=== PATIENT | female | born 1960 | race Two or more races ===

== ENCOUNTER 2018-08-22 19:10 | Emergency (ER) | payer OTHER ==
[~2018-08-22] VITALS: Ht 157.5 cm; Wt 100.2 kg
[~2018-08-22 19:10] MED LIST: ASPI81TA31 PO; ATOR80TA PO; GLIM4TAB3 PO; LISI10TA5 PO; METF-440 PO; OMEP20TA20 PO
[2018-08-22] MEDS ORDERED: OMEP40CA37 PO (19:37)
[2018-08-22 20:01] LABS: *BILIRUBIN,URIN NEGATIVE (NEGATIVE); *BLOOD, URINE NEGATIVE (NEGATIVE); *CLARITY,URINE CLEAR (CLEAR); *COLOR,URINE YELLOW (YELLOW); *KETONES,URINE NEGATIVE (NEGATIVE); *UROBILINOGEN,URINE 0.2 E.U./dl (NORMAL); BACTERIA,URINE NONE SEEN /HPF (NONE SEEN); LEUKOCYTE ESTERASE ,URINE TRACE (NEGATIVE); NITRITE, URINE NEGATIVE (NEGATIVE); RBC,URINE 0-3 /HPF (0-3); SQUAMOUS EPITHELIAL CELL,UR FEW /HPF (NONE SEEN); UGLUCOSE 2+ (NEGATIVE); WBC,URINE 0-3 /HPF (0-3)
[2018-08-22 20:19] LABS: BASOPHILS # (AUTO) 0.1 K/uL (0.0-8.0); BASOPHILS % (AUTO) 0.8 % (0.0-2.0); EOSINOPHILS # (AUTO) 0.1 K/uL (0.0-0.7); EOSINOPHILS % (AUTO) 0.8 % (0.0-7.0); HEMATOCRIT 41.1 % (31.2-41.9); HEMOGLOBIN 13.6 g/dL (10.9-14.3); LYMPHOCYTES # (AUTO) 2.3 K/uL (20.0-40.0); MEAN CORPUSCULAR HEMOGLOBIN 29.7 uug (24.7-32.8); MEAN CORPUSCULAR HGB CONC 33 g/dL (32.3-35.6); MONOCYTES # (AUTO) 0.5 K/uL (2.0-10.0); MONOCYTES % (AUTO) 6.5 % (0.0-11.0); NEUTROPHILS # (AUTO) 4.9 K/uL (1.8-8.9); NEUTROPHILS % (AUTO) 62.9 % (38.5-71.5); PLATELET COUNT (AUTO) 351 K/uL (179-408); RED BLOOD CELL COUNT(AUTO) 4.57 MIL/uL (3.63-4.92); WHITE BLOOD COUNT (AUTO) 7.8 K/uL (3.8-11.8)
[2018-08-22 20:25] LABS: POTASSIUM 5.2 mmol/L (3.5-5.1)
[2018-08-22] MEDS ORDERED: FLUCONAZOLE 100 MG TABLET ONE ×2 (20:46→20:48)
[2018-08-22] MEDS: FLUCONAZOLE 100 MG TABLET PO ONE (20:46)
[2018-08-22] MEDS ORDERED: INSULIN REGULAR, HUMAN 300 UNIT/3 ML VIAL ONE (20:47)
[2018-08-22] MEDS: INSULIN REGULAR, HUMAN 300 UNIT/3 ML VIAL SQ ONE (20:48)
--- NOTE | 2018-08-22 22:36 | NUR ---
Patient discharged to home in stable conditon. Written and verbal after care instructions given. Patient verbalizes understanding of instructions. WALKED OUT OF ER WITH NO DISTRESS NOTED
[2018-08-22 22:37] VITALS: BP 155/99
== END 2018-08-22 22:37 | disposition home or self-care (01) ==
LOC: ER 19:13 → MERGE 19:13 → ER 22:37
DX: R30.0 Dysuria (principal); N89.8 Other specified noninflammatory disorders of vagina; I10 Essential (primary) hypertension; E11.65 Type 2 diabetes mellitus with hyperglycemia; E78.5 Hyperlipidemia, unspecified; Z88.0 Allergy status to penicillin; Z90.49 Acquired absence of other specified parts of digestive tract; Z79.82 Long term (current) use of aspirin; Z79.899 Other long term (current) drug therapy
CPT/HCPCS: 36415; 80048; 81001; 82962; 85025; 87077; 87086; 96372; 99283; J1815; A4663

== ENCOUNTER 2018-09-05 15:29 | Emergency (ER) | payer OTHER ==
[~2018-09-05] VITALS: Ht 160 cm; Wt 100.2 kg
[~2018-09-05 15:29] MED LIST changes: -OMEP20TA20 PO; +OMEP40CA37 PO
[2018-09-05] MEDS ORDERED: IV NORMAL SALINE 1000 ML BAG IV ONE (15:45)
[2018-09-05] MEDS ORDERED: ONDANSETRON IV *ER 4 MG/2 ML VIAL IV ONE (15:45)
[2018-09-05] MEDS ORDERED: KETOROLAC TROMETHAMINE 30 MG INJ IVP ONE (15:45)
[2018-09-05] MEDS ORDERED: ONDANSETRON 4 MG/2 ML VIAL ONE (15:55)
[2018-09-05] MEDS ORDERED: KETOROLAC TROMETHAMINE 30 MG INJ ONE (15:55)
[2018-09-05 17:15] LABS: BASOPHILS % (AUTO) 0.4 % (0.0-2.0); EOSINOPHILS # (AUTO) 0.1 K/uL (0.0-0.7); HEMATOCRIT 36.7 % (31.2-41.9); HEMOGLOBIN 11.9 g/dL (10.9-14.3); LYMPHOCYTES # (AUTO) 1.9 K/uL (20.0-40.0); MEAN CORPUSCULAR HEMOGLOBIN 29.5 uug (24.7-32.8); MEAN CORPUSCULAR HGB CONC 33 g/dL (32.3-35.6); MEAN CORPUSCULAR VOLUME 90.8 fL (75.5-95.3); MONOCYTES # (AUTO) 0.4 K/uL (2.0-10.0); MONOCYTES % (AUTO) 5.7 % (0.0-11.0); NEUTROPHILS # (AUTO) 4.3 K/uL (1.8-8.9); NEUTROPHILS % (AUTO) 63.9 % (38.5-71.5); PLATELET COUNT (AUTO) 249 K/uL (179-408); RED BLOOD CELL COUNT(AUTO) 4.04 MIL/uL (3.63-4.92); WHITE BLOOD COUNT (AUTO) 6.7 K/uL (3.8-11.8)
[2018-09-05 17:26] LABS: CREATININE 0.9 mg/dL (0.6-1.3); POTASSIUM 4.9 mmol/L (3.5-5.1)
[2018-09-05] MEDS ORDERED: ACETAMINOPHEN 325 MG TABLET PO ONE (17:30)
[2018-09-05] MEDS ORDERED: MECLIZINE HCL 25 MG TABLET PO ONE (17:45)
--- NOTE | 2018-09-05 17:49 | NUR ---
IV removed. Catheter intact and site benign. Pressure and 4x4 gauze applied to site. No bleeding noted. Patient discharged to home in stable conditon. Written and verbal after care instructions given to patient and family. Patient and family verbalized understanding of instructions.
[2018-09-05] MEDS ORDERED: ACETAMINOPHEN ES 500 MG TABLET ONE (17:53)
[2018-09-05] MEDS ORDERED: MECLIZINE HCL 25 MG TABLET ONE (17:54)
== END 2018-09-05 18:02 | disposition home or self-care (01) ==
LOC: ER 15:32
DX: H83.02 Labyrinthitis, left ear (principal); B97.89 Other viral agents as the cause of diseases classified elsewhere; R11.2 Nausea with vomiting, unspecified; J02.9 Acute pharyngitis, unspecified; E11.9 Type 2 diabetes mellitus without complications; R42 Dizziness and giddiness; Z88.0 Allergy status to penicillin
CPT/HCPCS: 36415; 80048; 85025; 87400; 96374; 96375; 99283; J1885; J2405; A4663; A9150; J7030; J8597

== ENCOUNTER 2020-02-05 19:36 | Emergency (ER) | payer OTHER ==
[~2020-02-05] VITALS: Ht 165.1 cm; Wt 98.9 kg
[~2020-02-05 19:36] MED LIST changes: -GLIM4TAB3 PO; +GLIM4TAB37 PO; +OMEP40CA13 PO; -OMEP40CA37 PO
[2020-02-05] MEDS ORDERED: HYDROMORPHONE 1 MG/1 ML DISP.SYRIN IV ONE (20:30)
[2020-02-05] MEDS ORDERED: ONDANSETRON 4 MG/2 ML VIAL IV ONE ×2 (20:30→22:30)
[2020-02-05 20:43] LABS: BASOPHILS # (AUTO) 0.1 K/uL (0.0-8.0); BASOPHILS % (AUTO) 0.7 % (0.0-2.0); EOSINOPHILS # (AUTO) 0.2 K/uL (0.0-0.7); EOSINOPHILS % (AUTO) 2.7 % (0.0-7.0); HEMATOCRIT 40.2 % (31.2-41.9); HEMOGLOBIN 13.4 g/dL (10.9-14.3); LYMPHOCYTES # (AUTO) 2.6 K/uL (20.0-40.0); LYMPHOCYTES % (AUTO) 30.4 % (20.5-51.5); MEAN CORPUSCULAR HEMOGLOBIN 30.7 uug (24.7-32.8); MEAN CORPUSCULAR HGB CONC 33 g/dL (32.3-35.6); MEAN CORPUSCULAR VOLUME 92.2 fL (75.5-95.3); MONOCYTES # (AUTO) 0.6 K/uL (2.0-10.0); MONOCYTES % (AUTO) 7.1 % (0.0-11.0); NEUTROPHILS % (AUTO) 59.1 % (38.5-71.5); PLATELET COUNT (AUTO) 342 K/uL (179-408); RED BLOOD CELL COUNT(AUTO) 4.36 MIL/uL (3.63-4.92); WHITE BLOOD COUNT (AUTO) 8.5 K/uL (3.8-11.8)
[2020-02-05] MEDS ORDERED: SWABABLE VALVE TRANSFER SET EA MC ONE (20:45)
[2020-02-05] MEDS ORDERED: IV NORMAL SALINE 0 ML IV ONE (20:45)
[2020-02-05] MEDS ORDERED: IOHEXOL 300MG/ML 100 ML INFUS..BTL ONE (20:45)
[2020-02-05] MEDS ORDERED: HYDROMORPHONE 1 MG/1 ML DISP.SYRIN ONE (20:51)
[2020-02-05] MEDS ORDERED: ONDANSETRON 4 MG/2 ML VIAL ONE ×2 (20:51→22:28)
[2020-02-05 21:41] LABS: BILIRUBIN,DIRECT 0.1 mg/dL (0.0-0.2); BILIRUBIN,TOTAL 0.5 mg/dL (0.2-1.0); CREATININE 1.6 mg/dL (0.6-1.3); POTASSIUM 4.6 mmol/L (3.5-5.1); TOTAL PROTEIN, SERUM 7.6 g/dL (6.4-8.2)
[2020-02-05] MEDS ORDERED: METRONIDAZOLE 500 MG/NS 100 ML PIGGYBACK IV ONE (23:30)
[2020-02-05] MEDS ORDERED: levoFLOXacin 750 MG/D5W 150 ML PIGGYBACK IV ONE (23:30)
[2020-02-05] MEDS ORDERED: METRONIDAZOLE 500 MG/NS 100ML 100 ML IV ONE (23:32)
[2020-02-06] MEDS ORDERED: METFORMIN HCL 500 MG TABLET PO ONE
[2020-02-06] MEDS ORDERED: levoFLOXacin 750MG/D5W 150 ML IV ONE (00:15)
[2020-02-06] MEDS ORDERED: METFORMIN HCL 500 MG TABLET ONE (00:32)
[2020-02-06] MEDS ORDERED: diphenhydrAMINE 50 MG/1 ML VIAL IV ONE (01:00)
[2020-02-06] MEDS ORDERED: METOCLOPRAMIDE HCL 10 MG/2 ML VIAL IV ONE (01:00)
[2020-02-06] MEDS ORDERED: METOCLOPRAMIDE HCL 10 MG/2 ML VIAL ONE (01:06)
[2020-02-06] MEDS ORDERED: diphenhydrAMINE 50 MG/1 ML VIAL ONE (01:06)
--- NOTE | 2020-02-06 02:09 | NUR ---
IV removed. Catheter intact and site benign. Pressure and 4x4 gauze applied to site. No bleeding noted.
--- NOTE | 2020-02-06 02:09 | NUR ---
Patient discharged to home in stable condition. Written and verbal after care instructions given. Patient verbalizes understanding of instructions. Stressed follow up or return to ER for worsening s/s.
[2020-02-06 02:10] VITALS: BP 124/88
== END 2020-02-06 02:11 | disposition home or self-care (01) ==
LOC: ER 19:36
DX: K57.92 Diverticulitis of intestine, part unspecified, without perforation or abscess without bleeding (principal); E11.65 Type 2 diabetes mellitus with hyperglycemia; Z79.84 Long term (current) use of oral hypoglycemic drugs; Z88.0 Allergy status to penicillin; E66.9 Obesity, unspecified; Z68.36 Body mass index [BMI] 36.0-36.9, adult; Z20.828 Contact with and (suspected) exposure to other viral communicable diseases
CPT/HCPCS: 36415; 74176; 80048; 80076; 83690; 85025; 85730; 96365; 96366; 96367; 96375; 96376; 99285; J1170; J1200; J1956; J2405 ×2; J2765; J3490; Q9967; U0003; A4663; J7050

== ENCOUNTER 2020-03-18 19:51 | Emergency (ER) | payer OTHER ==
[~2020-03-18] VITALS: Ht 152.4 cm; Wt 95.3 kg
--- NOTE | 2020-03-18 20:20 | NUR ---
Dr. Crawford at bedside for MSE
[2020-03-18 20:45] LABS: BASOPHILS % (AUTO) 0.7 % (0.0-2.0); EOSINOPHILS # (AUTO) 0.1 K/uL (0.0-0.7); EOSINOPHILS % (AUTO) 1.4 % (0.0-7.0); HEMATOCRIT 36.4 % (31.2-41.9); HEMOGLOBIN 12.3 g/dL (10.9-14.3); LYMPHOCYTES # (AUTO) 2.3 K/uL (20.0-40.0); LYMPHOCYTES % (AUTO) 30.4 % (20.5-51.5); MEAN CORPUSCULAR HEMOGLOBIN 30.9 uug (24.7-32.8); MEAN CORPUSCULAR HGB CONC 34 g/dL (32.3-35.6); MEAN CORPUSCULAR VOLUME 91.6 fL (75.5-95.3); MONOCYTES # (AUTO) 0.4 K/uL (2.0-10.0); MONOCYTES % (AUTO) 5.6 % (0.0-11.0); NEUTROPHILS # (AUTO) 4.6 K/uL (1.8-8.9); NEUTROPHILS % (AUTO) 61.9 % (38.5-71.5); PLATELET COUNT (AUTO) 311 K/uL (179-408); RED BLOOD CELL COUNT(AUTO) 3.97 MIL/uL (3.63-4.92); WHITE BLOOD COUNT (AUTO) 7.4 K/uL (3.8-11.8)
[2020-03-18 20:50] LABS: CREATININE 1.3 mg/dL (0.6-1.3); POTASSIUM 5.1 mmol/L (3.5-5.1)
[2020-03-18] MEDS ORDERED: INSULIN REGULAR, HUMAN 300 UNIT/3 ML VIAL SQ ONE (21:00)
[2020-03-18] MEDS ORDERED: INSULIN REGULAR, HUMAN 300 UNIT/3 ML VIAL ONE (21:03)
--- NOTE | 2020-03-18 21:08 | NUR ---
8 UNITS REGULAR INSULIN GIVEN SQ LA. PATIENT TOLERATED WELL
[2020-03-18] MEDS ORDERED: ACETAMINOPHEN ES 500 MG TABLET ONE (21:14)
[2020-03-18] MEDS ORDERED: ACETAMINOPHEN 325 MG TABLET PO ONE (21:15)
--- NOTE | 2020-03-18 21:18 | NUR ---
Patient discharged to home in stable condition. Written and verbal after care instructions given. Patient verbalizes understanding of instructions. Stressed follow up or return to ER for worsening s/s. Patient ambulating with steady gait. NAD noted
[2020-03-18 21:22] VITALS: BP 137/85
== END 2020-03-18 21:18 | disposition home or self-care (01) ==
LOC: ER 19:55
DX: S40.021A Contusion of right upper arm, initial encounter (principal); S80.02XA Contusion of left knee, initial encounter; W01.0XXA Fall on same level from slipping, tripping and stumbling without subsequent striking against object, initial encounter; Y93.89 Activity, other specified; Y92.512 Supermarket, store or market as the place of occurrence of the external cause; E11.65 Type 2 diabetes mellitus with hyperglycemia; Z79.84 Long term (current) use of oral hypoglycemic drugs; I10 Essential (primary) hypertension; Z79.82 Long term (current) use of aspirin; Z79.899 Other long term (current) drug therapy
CPT/HCPCS: 36415; 73060; 73564; 80048; 85025; 96372; 99284; J1815; A4663; A9150

== ENCOUNTER 2023-07-22 18:38 | Emergency (ER) | payer OTHER ==
[~2023-07-22] VITALS: Ht 160 cm; Wt 95.3 kg
[~2023-07-22 18:38] MED LIST changes: +LISI10TA29 PO; -LISI10TA5 PO; -OMEP40CA13 PO; +OMEP40CA21 PO
[2023-07-22] MEDS ORDERED: IOHEXOL 300MG/ML 100 ML INFUS..BTL ONE (19:28)
[2023-07-22] MEDS ORDERED: SWABABLE VALVE TRANSFER SET EA MC ONE (19:28)
[2023-07-22] MEDS ORDERED: IV NORMAL SALINE 250 ML IV ONE (19:28)
[2023-07-22] MEDS ORDERED: ONDANSETRON 4 MG/2 ML VIAL ONE ×2 (19:31→22:43)
[2023-07-22 19:32] LABS: BASOPHILS # (AUTO) 0.1 K/UL (0.0-0.2); BASOPHILS % (AUTO) 0.6 % (0.0-2.0); EOSINOPHILS # (AUTO) 0.1 K/uL (0.0-0.7); EOSINOPHILS % (AUTO) 1.5 % (0.0-7.0); HEMATOCRIT 37.4 % (31.2-41.9); HEMOGLOBIN 12.3 g/dL (10.9-14.3); LYMPHOCYTES # (AUTO) 2.9 K/uL (0.8-4.8); LYMPHOCYTES % (AUTO) 29.8 % (20.5-51.5); MEAN CORPUSCULAR HEMOGLOBIN 29.3 uug (24.7-32.8); MEAN CORPUSCULAR HGB CONC 33 g/dL (32.3-35.6); MEAN CORPUSCULAR VOLUME 89.2 fL (75.5-95.3); MONOCYTES # (AUTO) 0.6 K/uL (0.1-1.30); MONOCYTES % (AUTO) 6.2 % (0.0-11.0); NEUTROPHILS # (AUTO) 6.1 K/uL (1.8-8.9); NEUTROPHILS % (AUTO) 61.9 % (38.5-71.5); PLATELET COUNT (AUTO) 388 K/uL (179-408); RED BLOOD CELL COUNT(AUTO) 4.19 MIL/uL (3.63-4.92); RED CELL DISTRIBUTION WIDTH 14.1 % (12.3-17.7); WHITE BLOOD COUNT (AUTO) 9.8 K/uL (3.8-11.8)
[2023-07-22] MEDS ORDERED: HYDROMORPHONE 1 MG/1 ML DISP.SYRIN ONE (19:32)
[2023-07-22 19:44] LABS: DIFFERENTIAL COMMENT 1
[2023-07-22 19:45] LABS: CALCIUM 9.7 mg/dL (8.5-10.1); CREATININE 1.4 mg/dL (0.6-1.3); POTASSIUM 4.2 mmol/L (3.5-5.1)
[2023-07-22 19:50] LABS: ALBUMIN 3.2 g/dL (3.4-5.0); BILIRUBIN,DIRECT 0.1 mg/dL (0.0-0.2); BILIRUBIN,TOTAL 0.8 mg/dL (0.2-1.0); TOTAL PROTEIN, SERUM 7.9 g/dL (6.4-8.2)
[2023-07-22] MEDS: HYDROMORPHONE 1 MG/1 ML DISP.SYRIN IV ONE (19:53)
[2023-07-22] MEDS: ONDANSETRON 4 MG/2 ML VIAL IV ONE ×2 (19:54→22:46)
[2023-07-22] MEDS: IV NORMAL SALINE 1000 ML BAG IV ONE (19:54)
[2023-07-22] MEDS ORDERED: levoFLOXacin 750MG/D5W 150 ML IV ONE (21:10)
[2023-07-22] MEDS ORDERED: METRONIDAZOLE 500 MG/NS 100ML 100 ML IV ONE (21:11)
[2023-07-22] MEDS: METRONIDAZOLE 500 MG/NS 100 ML PIGGYBACK IV ONE (21:16)
[2023-07-22] MEDS: levoFLOXacin 750 MG/D5W 150 ML PIGGYBACK IV ONE (21:35)
[2023-07-22] MEDS ORDERED: METR-147 PO (21:41)
[2023-07-22] MEDS ORDERED: ONDA4TAB5 PO (21:41)
[2023-07-22] MEDS ORDERED: HYDR-3980 PO (21:41)
[2023-07-22] MEDS ORDERED: LEVO750T46 PO (21:41)
[2023-07-22] MEDS ORDERED: ONDA4TAB11 PO (22:38)
[2023-07-22 22:55] VITALS: BP 136/86; O2SAT 96
== END 2023-07-22 22:56 | disposition home or self-care (01) ==
LOC: ER 18:42
DX: K57.92 Diverticulitis of intestine, part unspecified, without perforation or abscess without bleeding (principal); E11.9 Type 2 diabetes mellitus without complications; Z79.82 Long term (current) use of aspirin; Z79.899 Other long term (current) drug therapy; Z88.0 Allergy status to penicillin
CPT/HCPCS: 99285; 74177; 96365; 96375; 96361; 80076; 80048; 83690; 85025; 36415; 93005; 96368; 96376; J1956; J3490; J2405 ×2; Q9967; J1170; J7040; A4606; A4663

== ENCOUNTER 2023-08-20 14:17 | Emergency (ER) | payer OTHER ==
[~2023-08-20] VITALS: Ht 160 cm; Wt 108.9 kg
[~2023-08-20 14:17] MED LIST changes: +HYDR-3980 PO; +LEVO750T46 PO; +METR-147 PO; +ONDA4TAB11 PO
[2023-08-20] MEDS ORDERED: DOXY-226 PO (15:07)
[2023-08-20] MEDS ORDERED: DOXYCYCLINE HYCLATE 100 MG TABLET ONE (15:11)
[2023-08-20] MEDS: DOXYCYCLINE HYCLATE 100 MG TABLET PO ONE (15:13)
[2023-08-20] MEDS: methylPREDNISolone ACETATE 40 MG VIAL IM ONE (15:15)
[2023-08-20] MEDS ORDERED: DEXAMETHASONE SOD PHOSPHATE 4 MG INJ ONE (16:35)
[2023-08-20] MEDS: DEXAMETHASONE SOD PHOSPHATE 4 MG INJ IM ONE (16:41)
[2023-08-20 16:42] VITALS: BP 148/84; O2SAT 97
[2023-08-20] MEDS ORDERED: DOXY100T2 PO (16:48)
== END 2023-08-20 16:42 | disposition home or self-care (01) ==
LOC: ER 14:20
DX: J02.9 Acute pharyngitis, unspecified (principal); E11.9 Type 2 diabetes mellitus without complications; Z79.82 Long term (current) use of aspirin; Z79.899 Other long term (current) drug therapy; Z88.0 Allergy status to penicillin
CPT/HCPCS: 99283; 96372; J1100; A4606; A4663